=== PATIENT | male | born 1975 | race Caucasian/White ===

== ENCOUNTER 2021-12-30 07:13 | Day surgery (SDC) | payer OTHER, SELFPAY ==
[2021-12-30] VITALS (11 sets, daily range): BP systolic 90–129; BP diastolic 63–87; PULSE 55–63; RESP 12–18; TEMP 36.1–36.3; O2SAT 95–100; BMI 32.7
[2021-12-30] MEDS: SODIUM CHLORIDE 0.9 % (FLUSH) 10 ML SYRINGE IVF (07:35)
[2021-12-30] MEDS: LACTATED RINGERS 1000 ML 1,000 ML 100 ML IV (07:35)
--- NOTE | 2021-12-30 11:10 | PM.ORPRC ---
Procedure Note Date of procedure: 12/30/21 Procedure: SURGEON: Livan Gagnon MD STRIPE MARKER: ALL Graham PREOPERATIVE DIAGNOSIS: Right knee medial meniscus tear POSTOPERATIVE DIAGNOSIS: Right knee medial meniscus tear NAME OF OPERATION: Right knee arthroscopic partial medial meniscectomy ANESTHESIA: Spinal ESTIMATED BLOOD LOSS: 0 mL COMPLICATIONS: None SPECIMENS: None DRAINS: None PREOPERATIVE ANTIBIOTICS: Ancef 2 gram INDICATIONS: The patient is a 46-year-old male with a history of right knee pain. MRI scan is consistent with a medial meniscus tear. Despite appropriate nonoperative management, including activity modification, antiinflammatories, [id number] pain medication, bracing, physical therapy, and injections they continue to have pain and disability. Operative intervention was offered. The risks, benefits and expected outcomes were discussed in detail. These included but were not limited to: Infection, bleeding, injury to blood vessel or nerve, venous thromboembolism. All questions were answered to their satisfaction. PROCEDURE: Spinal anesthesia was administered. The patient was placed supine on the operating room table. The right lower extremity was prepped and draped in the usual sterile fashion. The limb was exsanguinated with the Justin bandage. The pneumatic tourniquet was inflated to 300 mmHg. A standard anterolateral portal was established. The arthroscope was introduced. The working portal was established anteromedially. Diagnostic arthroscopy was performed with findings as follows: The suprapatellar pouch is normal. Articular surface on the patella shows focal grade 2/3 private branch exchange service adviser the median ridge. Articular surface on the trochlea shows a small, focal area of grade 3/4 change centrally. The medial gutter is normal. The medial compartment shows a focal area of grade 2/3 change on the medial femoral condyle, normal articular cartilage on the medial tibial plateau. The medial meniscus has degenerative fraying of the leading edge of the midbody at the junction with the posterior horn. There is some intrasubstance/horizontal cleavage tearing in this area. The notch shows the ACL to be intact. The lateral compartment shows a small focal area of grade 3 change on the lateral femoral condyle, normal articular cartilage on the lateral tibial plateau. The lateral meniscus is normal, there is no obvious tear. The lateral gutter is normal. The leading edge of posterior horn and midbody of the medial meniscus was debrided with a basket. This exposed more significant intrasubstance/horizontal cleavage tearing. This was resected with the basket and the shaver to a stable base. Arthroscopic instruments were removed, the portal sites were Steri-Stripped closed, the knee was infiltrated with 30 mL of 0.25% Marcaine without epinephrine. A dry dressing was applied, the tourniquet was released. Sponge and needle counts were correct x 2. The patient tolerated the procedure well. There were no apparent complications. They were carefully transferred to the hospital bed and taken to the postanesthesia care unit in satisfactory condition. PLAN: The patient will be discharged to home. They may weightbear as tolerates. Range of motion will be unrestricted. They will follow up in the office next week for a wound check.
--- NOTE | 2021-12-30 11:11 | PC.NURSE ---
3000 NACL USED FOR IRRIGATION
[2021-12-30] MEDS: BUPIVACAINE 0.25% 30 ML INJECTION (11:18)
--- NOTE | 2021-12-30 11:24 | W.ANESCHARGE ---
Anesthesia Charges Start Date/Time Anesthesia Start Date: 12/30/21 Anesthesia Start Time: 10:20 Stop Date/Time Anesthesia Stop Date: 12/30/21 Anesthesia Stop Time: 10:22 Summary Emergency: No
--- NOTE | 2021-12-30 12:15 | W.ANESCHARGE ---
Anesthesia Charges Start Date/Time Anesthesia Start Date: 12/30/21 Anesthesia Start Time: 10:20 Stop Date/Time Anesthesia Stop Date: 12/30/21 Anesthesia Stop Time: 11:22 Summary Emergency: No
== END 2021-12-30 13:46 | disposition home or self-care (01) ==
PROVIDERS: PCP Physician Assistant; Visit Provider Orthopaedic Surgery
PROC: (CPT 29870; principal; 2021-12-30 09:45)
DX: M23.221 Derangement of posterior horn of medial meniscus due to old tear or injury, right knee (principal)
CPT/HCPCS: 29881; 01400; J1100; J2250; J2405; J2704; J3010; J3490; J7120